=== PATIENT | female | born 1980 | race Caucasian/White ===

== ENCOUNTER 2016-11-14 19:54 | Emergency (ER) | payer OTHER ==
[2016-11-14 20:03] VITALS: BP 128/76; PULSE 105; TEMP 98.7; BMI 30.2
--- NOTE | 2016-11-14 20:07 | PDOC ---
History of Present Illness - History of Present Illness Initial Comments: 11/14/16 20:16 The patient is a 36 year old female with no past medical hx of who presents to the ED complaining of a sore throat since last night. The patient states she is having associated body aches, right ear pain, and headache. The patient notes her son had strep throat two weeks ago, and her mother had strep throat last week. The patient states she got the flu shot this year. The patient denies chest pain, SOB The patient denies dysuria, frequency The patient denies any nausea, vomiting, diarrhea Social: No tobacco use reported Allergies:NKDA Surgical: Cholecystectomy, , Fibroids removed PCP: Dr. Jony Goldsmith <Sita Torres - Last Filed: 11/14/16 20:21> <Jack Vicente - Last Filed: 11/14/16 20:24> - General Chief Complaint: Sore Throat Stated Complaint: SORE THROAT, BODY ACHES Time Seen by Provider: 11/14/16 20:06 Past History <Sita Torres - Last Filed: 11/14/16 20:21> - Surgical History Cholecystectomy: Yes - Immunization History Td Vaccination: Yes Immunization Up to Date: No - Psycho/Social/Smoking Cessation Hx Anxiety: No Suicidal Ideation: No Smoking Status: No Smoking History: Never smoked Number of Cigarettes Smoked Daily: 0 Hx Alcohol Use: No Drug/Substance Use Hx: No Substance Use Type: Alcohol <Jack Vicente - Last Filed: 11/14/16 20:24> - Past Medical History Allergies/Adverse Reactions: Allergies Allergy/AdvReac Type Severity Reaction Status Date / Time No Known Allergies Allergy Verified 08/31/13 11:58 Review of Systems - Review of Systems Able to Perform ROS?: Yes Comments:: 11/14/16 20:17 GENERAL/CONSTITUTIONAL: +body aches. No fever or chills. No weakness. HEAD, EYES, EARS, NOSE AND THROAT: +Sore throat, right ear pain. No change in vision. No ear discharge. CARDIOVASCULAR: No chest pain or shortness of breath. RESPIRATORY: No cough, wheezing, or hemoptysis. GASTROINTESTINAL: No nausea, vomiting, diarrhea or constipation. GENITOURINARY: No dysuria, frequency, or change in urination. MUSCULOSKELETAL: No joint or muscle swelling or pain. No neck or back pain. SKIN: No rash NEUROLOGIC: + headache. No vertigo, loss of consciousness, or change in strength /sensation. ENDOCRINE: No increased thirst. No abnormal weight change. HEMATOLOGIC/LYMPHATIC: No anemia, easy bleeding, or history of blood clots. ALLERGIC/IMMUNOLOGIC: No hives or skin allergy. <Sita Torres - Last Filed: 11/14/16 20:21> *Physical Exam - Vital Signs Last Vital Signs Temp Pulse Resp BP Pulse Ox 98.7 F 105 H 16 128/76 100 11/14/16 19:55 11/14/16 19:55 11/14/16 19:55 11/14/16 19:55 11/14/16 19:55 - Physical Exam Comments: 11/14/16 20:18 GENERAL: Awake, alert, and fully oriented. Crying. HEAD: No signs of trauma EYES: PERRLA, EOMI, sclera anicteric, conjunctiva clear ENT: +Oropharynx has areas of exudate, is red, and inflammed. Auricles normal inspection, hearing grossly normal, nares patent. NECK: +Swollen lymph nodes. Normal ROM, supple, JVD, or masses LUNGS: Breath sounds equal, clear to auscultation bilaterally. No wheezes, and no crackles HEART: Regular rate and rhythm, normal S1 and S2, no murmurs, rubs or gallops ABDOMEN: Soft, nontender, normoactive bowel sounds. No guarding, no rebound. No masses EXTREMITIES: Normal range of motion, no edema. No clubbing or cyanosis. No cords, erythema, or tenderness NEUROLOGICAL: Cranial nerves II through XII grossly intact. Normal speech, normal gait SKIN: Warm, Dry, normal turgor, no rashes or lesions noted. <EzequielJp puriSita - Last Filed: 11/14/16 20:21> - Vital Signs Last Vital Signs Temp Pulse Resp BP Pulse Ox 98.7 F 105 H 16 128/76 100 11/14/16 19:55 11/14/16 19:55 11/14/16 19:55 11/14/16 19:55 11/14/16 19:55 <Jack Vicente - Last Filed: 11/14/16 20:24> *DC/Admit/Observation/Transfer - Attestations Scribe Attestion: 11/14/16 20:18 Documentation prepared by Sita Torres, acting as clinical medical transcriptionist for Jack Vicente MD/. <Sita Torres - Last Filed: 11/14/16 20:21> - Discharge Dispostion Admit: No - Attestations Physician Attestion: 11/14/16 20:07 I, Dr. Jack Vicente, attest that this document has been prepared under my direction and personally reviewed by me in its entirety. I further attest, that it accurately reflects all work, treatment, procedures and medical decision -making performed by me. <Jack Vicente - Last Filed: 11/14/16 20:24> Diagnosis at time of Disposition: Exudative pharyngitis - Discharge Dispostion Disposition: HOME Condition at time of disposition: Good - Referrals Referrals: Jony Goldsmith MD [Primary Care Provider] - - Patient Instructions Printed Discharge Instructions: DI for Pharyngitis/Tonsillopharyngitis -- Adult Additional Instructions: Judy- You won't need any antibiotics at home since you got the shot. Rest- Plenty of fluids, gargle with saltwater, tylenol for fever and motrin for pain. Return to us if worse. See your doctor in a few days. Hope you feel better soon- Best- Dr. Jack Vicente
[2016-11-14] MEDS ORDERED: PENICILLIN G BENZATHINE 1,200,000 UNIT/2 ML PFS IM ONE (20:11)
[2016-11-14] MEDS ORDERED: OXYCODONE/APAP 5/325MG COMBO TABLET PO ONE (20:12)
[2016-11-14] MEDS ORDERED: ONDANSETRON *ODT* 4 MG TABLET SL ONE (20:12)
[2016-11-14] MEDS ORDERED: ONDANSETRON *ODT* 4 MG TABLET ONE (20:22)
[2016-11-14] MEDS ORDERED: OXYCODONE/APAP 5/325MG COMBO TABLET ONE (20:22)
[2016-11-14] MEDS ORDERED: PENICILLIN G BENZATHINE 2,400,000 UNIT/4 ML PFS ONE (20:23)
== END 2016-11-14 20:42 | disposition home or self-care (01) ==
LOC: FER 19:54
DX: J02.8 Acute pharyngitis due to other specified organisms (principal)
CPT/HCPCS: 99281-25

== ENCOUNTER 2016-11-16 18:38 | Emergency (ER) | payer OTHER ==
[2016-11-16 18:46] VITALS: BP 118/69; PULSE 100; TEMP 98.5; BMI 30.2
[2016-11-16] MEDS ORDERED: AZITHROMYCIN 250 MG TABLET (FP) PO ONE (19:56)
[2016-11-16] MEDS ORDERED: AZITHROMYCIN 250 MG TABLET (FP) ONE (20:03)
--- NOTE | 2016-11-16 20:03 | PDOC ---
History of Present Illness - General History Source: Patient Exam Limitations: No Limitations - History of Present Illness Initial Comments: 11/16/16 20:05 The patient is a 36 year old female, with no significant past medical history who presents to the emergency department with body aches, sore throat, and right ear pain for 3 days. The patient was seen here on Monday and reports her symptoms have only gotten worse. She notes having a decreased appetite and cannot eat or drink without throat pain. She reports taking Motrin with no alleviation of her symptoms. She reports her has had persistent similar symptoms recently. Patient is here with her who is also being evaluated in this ER. She denies chest pain and shortness of breath. She denies fever, headache and dizziness. She denies nausea, vomit, diarrhea and constipation. She denies dysuria, frequency, urgency and hematuria. Allergies: NKA Past surgical history: Fibroids removed, cholecystectomy, Social history: denies EtOH, drugs, and tobacco use. PCP: <Alan Sullivan - Last Filed: 11/16/16 20:05> <Magda Estrella - Last Filed: 11/17/16 04:44> - General Chief Complaint: Cold Symptoms Stated Complaint: BODY ACHE,SORE THROAT AND EAR ACHE. Time Seen by Provider: 11/16/16 19:10 Past History <Alan Sullivan - Last Filed: 11/16/16 20:05> - Past Medical History Other medical history: PT DENIES - Surgical History Abdominal Surgery: Yes (FIBROID REMOVAL) Cholecystectomy: Yes - Immunization History Td Vaccination: Yes Immunization Up to Date: No - Psycho/Social/Smoking Cessation Hx Anxiety: No Suicidal Ideation: No Smoking Status: No Smoking History: Never smoked Number of Cigarettes Smoked Daily: 0 Information on smoking cessation initiated: No Hx Alcohol Use: No Drug/Substance Use Hx: No Substance Use Type: Alcohol <Magda Estrella - Last Filed: 11/17/16 04:44> - Past Medical History Allergies/Adverse Reactions: Allergies Allergy/AdvReac Type Severity Reaction Status Date / Time No Known Allergies Allergy Verified 11/16/16 18:40 Home Medications: Ambulatory Orders Azithromycin 250 mg PO DAILY #4 tablet 11/16/16 Oxycodone HCl/Acetaminophen [Percocet 5-325 mg Tablet] 1 tab PO Q6H PRN #6 tablet MDD 3 11/16/16 Review of Systems - Review of Systems All Other Systems: Reviewed and Negative <Alan Sullivan - Last Filed: 11/16/16 20:05> *Physical Exam - Vital Signs Last Vital Signs Temp Pulse Resp BP Pulse Ox 98.5 F 100 H 16 118/69 96 11/16/16 18:40 11/16/16 18:40 11/16/16 18:40 11/16/16 18:40 11/16/16 18:40 - Physical Exam Comments: 11/16/16 20:05 GENERAL: The patient is awake, alert, and fully oriented, in no acute distress. HEAD: Normal with no signs of trauma. EYES: Pupils equal, round and reactive to light, extraocular movements intact, sclera anicteric, conjunctiva clear with no pallor. ENT: Ears normal, nares patent, Moist mucous membranes. 1+ edema erythema of the tonsils bilaterally. No abscess noted on either side. NECK: Normal range of motion, JVD, or masses. Edematous tender anterior cervical lymph nodes bilaterally. LUNGS: Breath sounds equal, clear to auscultation bilaterally. No wheeze/ crackles. HEART: Regular rate and rhythm, normal S1 and S2 without murmur or rub. ABDOMEN: Soft/nontender/nondistended. BS wnl. No guarding or rebound. No palpable masses. No hepatosplenomegaly. EXTREMITIES: Normal range of motion, no edema. No clubbing or cyanosis. No cords , erythema, or tenderness. NEUROLOGICAL: Cranial nerves II through XII grossly intact. Normal speech, normal gait. PSYCH: Normal mood, normal affect. SKIN: Warm, Dry, normal turgor, no rashes or lesions noted. <Alan Sullivan - Last Filed: 11/16/16 20:05> - Vital Signs Last Vital Signs Temp Pulse Resp BP Pulse Ox 98.5 F 100 H 16 118/69 96 11/16/16 18:40 11/16/16 18:40 11/16/16 18:40 11/16/16 18:40 11/16/16 18:40 <Magda Estrella - Last Filed: 11/17/16 04:44> Progress Note - Progress Note Progress Note: Documentation has been prepared under my direction and personally reviewed by me in its entirety. I attest that this documented accurately reflects all work, treatment, procedures and medical decision making performed by me. <Magda Estrella - Last Filed: 11/17/16 04:44> Medical Decision Making - Medical Decision Making As noted above, this 36-year-old woman presents with persistent throat pain. She was seen here 2 days ago with similar symptoms. She was treated empirically (because of exposure to known strep pharyngitis and her family) with penicillin G IM. Patient reports no relief in her pain. Exam shows erythema of tonsils with some edema but no abscess or exudates. There is no evidence of acute otitis /pneumonia or other bacterial infection. Her presents tonight and his quick strep is positive. Although the patient is very likely adequate treated with Bicillin IM since resistance to this is quite rare, will also start this patient on Z-Dov (as her is) with first dose of azithromycin 500 given here. Patient also asked for "strong" medication for her throat pain to be used at night. It was explained to the patient that narcotics are not usually needed for pharyngitis pain. She did receive 1 tablet of Percocet 5/325 during her previous ER visit and had good pain relief from this. The patient will be given a limited (#6) prescription for Percocet 5/325 which she should use at night only for pain that is keeping her awake. If she has persistent pain of this level, she should return to the emergency room for further evaluation. <Magda Estrella - Last Filed: 11/17/16 04:44> *DC/Admit/Observation/Transfer - Attestations Scribe Attestion: 11/16/16 20:05 Documentation prepared by Alan Sullivan, acting as medical assembly for Magda Estrella MD. <Alan Sullivan - Last Filed: 11/16/16 20:05> <Magda Estrella - Last Filed: 11/17/16 04:44> Diagnosis at time of Disposition: Acute pharyngitis Qualifiers: Pharyngitis/tonsillitis etiology: streptococcus Qualified Code(s): J02.0 - Streptococcal pharyngitis - Discharge Dispostion Disposition: HOME Condition at time of disposition: Stable - Prescriptions Prescriptions: Azithromycin 250 mg PO DAILY #4 tablet Oxycodone HCl/Acetaminophen [Percocet 5-325 mg Tablet] 1 tab PO Q6H PRN #6 tablet MDD 3 PRN Reason: Severe Pain - Patient Instructions Printed Discharge Instructions: Strep Throat Additional Instructions: Rest; drink plenty of fluids Azithromycin 250 mg daily for the next 4 days Motrin/Aleve/acetaminophen as needed for mild to moderate pain Percocet 5/325 as needed for severe pain up to 3 tabs a day Return or see your doctor if persistent, severe throat pain occurs - Post Discharge Activity Work/School Note: Back to Work
== END 2016-11-16 20:13 | disposition home or self-care (01) ==
LOC: FER 18:38
DX: J02.0 Streptococcal pharyngitis (principal)
CPT/HCPCS: 99282-25